=== PATIENT | female | born 1985 | race Caucasian/White ===

== ENCOUNTER → 2023-08-07 14:55 | Outpatient (CLI) | payer MEDICARE, MEDICAID, SELFPAY ==
--- NOTE | 2023-08-07 14:57 | DI.MG.S_ITS ---
BILATERAL DIGITAL SCREENING MAMMOGRAM 3D/2D WITH CAD: 08/07/2023 CLINICAL: Routine screening. Baseline exam. No prior exams were available for comparison. There are scattered areas of fibroglandular density in both breasts (category b / 25%-50% glandular tissue). Current study was also evaluated with a Computer Aided Detection (CAD) system. No significant masses, calcifications, or other findings are seen in either breast. IMPRESSION: NEGATIVE There is no mammographic evidence of malignancy. A 1 year screening mammogram is recommended. Based on the Tyrer Cuzick model (a risk assessment model) the patient's lifetime risk is 11.0% and her 10 year risk is 1.2%. According to the ACR, ACS, and NCCN guidelines, an annual breast MRI exam along with mammogram is recommended if the patient's lifetime risk is 20% or greater. This exam was interpreted at Station ID: [id number]. NOTE: For mammograms, a report in lay terms will be sent to the patient. Approximately 15% of breast malignancies will not be visualized mammographically. In the management of a palpable breast mass, a negative mammogram must not discourage biopsy of a clinically suspicious lesion. Electronically Signed By: Ana Moreno M.D., PH.D gloria/marii:08/07/2023 22:43:10 letter sent: Normal Exam ACR BI-RADS Category 1: Negative [id number]
== END ==
PROVIDERS: PCP Internal Medicine; Referring Provider Family Medicine; Visit Provider Family Medicine
DX: Z12.31 Encounter for screening mammogram for malignant neoplasm of breast (principal); R92.323 Mammographic fibroglandular density, bilateral breasts
CPT/HCPCS: 77063; 77067

== ENCOUNTER → 2024-05-03 15:43 | Outpatient (CLI) | payer MEDICARE, MEDICAID, SELFPAY ==
[2024-05-03 17:25] LABS: Free T3, Triiodothyronine Free 3.86 pg/mL (2.77-5.27); Free T4, Direct Thyroxine 1.38 ng/dL (0.78-2.19)
[2024-05-03 17:39] LABS: Thyroid Stimulating Hormone 0.432 uIU/mL (0.47-4.68)
== END ==
PROVIDERS: PCP Family Medicine; Referring Provider Family Medicine; Visit Provider Family Medicine
DX: E03.9 Hypothyroidism, unspecified (principal); F64.9 Gender identity disorder, unspecified; F31.9 Bipolar disorder, unspecified; F43.10 Post-traumatic stress disorder, unspecified; F41.9 Anxiety disorder, unspecified
CPT/HCPCS: 36415; 84439; 84443; 84481

== ENCOUNTER → 2024-10-11 16:58 | Outpatient (CLI) | payer MEDICARE, MEDICAID, SELFPAY ==
[2024-10-11 18:20] LABS: Free T3, Triiodothyronine Free 4.08 pg/mL (2.77-5.27); Free T4, Direct Thyroxine 1.44 ng/dL (0.78-2.19)
[2024-10-11 18:34] LABS: Thyroid Stimulating Hormone 0.963 uIU/mL (0.47-4.68)
[2024-10-11 18:35] LABS: Testosterone 1070 ng/dL (5.71-77.0)
== END ==
PROVIDERS: PCP Family Medicine; Referring Provider Family Medicine; Visit Provider Family Medicine
DX: E03.9 Hypothyroidism, unspecified (principal); F64.9 Gender identity disorder, unspecified
CPT/HCPCS: 36415; 84403; 84439; 84443; 84481

== ENCOUNTER → 2025-06-26 14:56 | Outpatient (CLI) | payer MEDICARE, MEDICAID, SELFPAY ==
[2025-06-26 15:38] LABS: Add Manual Diff / Slide Review NO; Hematocrit 44.2 % (36-46); Hemoglobin 15.3 g/dL (12.0-16.0); Lymphocytes Absolute Auto 2900 /uL (1100-4500); Mean Corpuscular HGB Conc 34.5 % (30-36); Mean Corpuscular Hemoglobin 31.2 PG (26-34); Mean Corpuscular Volume 90.3 fL (80-100); Platelet Count 369 X10^3/uL (150-400)
[2025-06-26 15:56] LABS: Alanine Aminotransferase 18 IU/L (<35); Albumin 5.0 g/dL (3.5-5.0); Albumin Globulin Ratio 1.5 (1.0-2.8); Alkaline Phosphatase 57 U/L (38-126); Blood Urea Nitrogen 13 mg/dL (7-17); Calcium 9.7 mg/dL (8.4-10.2); Carbon Dioxide 20 mmol/L (22-32); Chloride 106 mmol/L (98-107); Cholesterol 281 mg/dL (140-199); Estimated Glomerular Filt Rate > 60 mL/min (>60); Globulin 3.4 g/dL (1.7-4.1); Glucose 90 mg/dL (70-99); HDL Cholesterol 94 mg/dL (40-60); HEMOLYSIS < 15 (0-50); Potassium 4.2 mmol/L (3.4-5.1); Sodium 138 mmol/L (137-145); Total Protein 8.4 g/dL (6.3-8.2); Triglycerides 285 mg/dL (35-150)
[2025-06-26 16:27] LABS: TSH w/ Reflex to FT4 0.62 uIU/mL (0.47-4.68)
== END ==
PROVIDERS: PCP Family Medicine; Referring Provider Family Medicine; Visit Provider Family Medicine
DX: E03.9 Hypothyroidism, unspecified (principal); F64.0 Transsexualism
CPT/HCPCS: 36415; 80053; 80061; 84402; 84403; 84443; 85025